=== PATIENT | male | born 1960 | race Caucasian/White ===

== ENCOUNTER 2022-05-05 13:42 | Emergency (ER) | payer MEDICARE ==
[~2022-05-05 13:42] MED LIST: ASPIRIN81 MG PO; FEOSOL325 MG PO; IBUPROFEN800 MG PO; LIPITOR20 MG PO; LOSARTAN POTASS25 MG PO; NEURONTIN300 MG PO; ZYRTEC10 M3 PO
[2022-05-05 15:30] LABS: BASOPHIL 0.3 % (0-2); EOSINOPHIL 0.9 % (0-5); HCT 41.8 % (42.0-52.0); HGB 14.2 g/dl (13.2-18.0); LYMPHOCYTE 11.3 % (15-48); MCH 30.1 pg (25.0-31.0); MCV 88.7 fL (78.0-100.0); MPV 10.1 fL (6.0-9.5); NEUTROPHIL 85.1 % (41-80); NRBC 0; PLT 231 K/uL (150-400); RBC 4.71 M/uL (4.70-6.00); RDW 13.4 % (11.5-14.0); WBC 12.4 K/uL (4.0-10.5)
[2022-05-05 15:42] LABS: BUN/CREAT RATIO (CALC) 16.7 RATIO; CREATININE 0.9 mg/dL (0.67-1.17); POTASSIUM 3.8 mmol/L (3.5-5.1)
[2022-05-05] MEDS ORDERED: PREDNISONE 20MG20 MG PO (15:58)
== END 2022-05-05 16:20 | disposition home or self-care (01) ==
LOC: FER 13:42
PROVIDERS: Nurse Practitioner Family
DX: T78.3XXA Angioneurotic edema, initial encounter (principal); T38.0X5A Adverse effect of glucocorticoids and synthetic analogues, initial encounter; I10 Essential (primary) hypertension; Z79.899 Other long term (current) drug therapy
CPT/HCPCS: 36415; 80048; 85025; J1200; J2930; J7030

== ENCOUNTER 2022-05-11 08:20 | Emergency (ER) | payer MEDICARE ==
[~2022-05-11 08:20] MED LIST changes: +PREDNISONE 20MG20 MG PO
[2022-05-11 09:35] LABS: BASOPHIL 0.3 % (0-2); EOSINOPHIL 0.4 % (0-5); HCT 48.7 % (42.0-52.0); HGB 16.3 g/dl (13.2-18.0); LYMPHOCYTE 16.4 % (15-48); MCH 29.7 pg (25.0-31.0); MCHC 33.5 g/dL (32.0-36.0); MCV 88.9 fL (78.0-100.0); MONOCYTE 5.8 % (0-12); NEUTROPHIL 75.5 % (41-80); NRBC 0; PLT 297 K/uL (150-400); RBC 5.48 M/uL (4.70-6.00); RDW 13.8 % (11.5-14.0); WBC 22.4 K/uL (4.0-10.5)
[2022-05-11 09:53] LABS: ALBUMIN 3.8 g/dL (3.4-5.0); BILIRUBIN - TOTAL 0.9 mg/dL (0.2-1.0); BUN/CREAT RATIO (CALC) 26.3 RATIO; CREATININE 0.95 mg/dL (0.67-1.17); POTASSIUM 4.4 mmol/L (3.5-5.1); TOTAL PROTEIN 7.8 g/dL (6.4-8.2)
== END 2022-05-11 11:50 | disposition home or self-care (01) ==
LOC: FER 08:20
PROVIDERS: Emergency Medicine
DX: T78.40XA Allergy, unspecified, initial encounter (principal)
CPT/HCPCS: 36415; 80053; 85025; J1200; J2930

== ENCOUNTER 2022-05-13 08:16 | Emergency (ER) | payer MEDICARE ==
[2022-05-13 08:48] LABS: BASOPHIL 0.5 % (0-2); EOSINOPHIL 0.9 % (0-5); HCT 45.5 % (42.0-52.0); HGB 15.2 g/dl (13.2-18.0); LYMPHOCYTE 21.5 % (15-48); MCH 30.3 pg (25.0-31.0); MCHC 33.4 g/dL (32.0-36.0); MCV 90.6 fL (78.0-100.0); MONOCYTE 6.6 % (0-12); MPV 9.2 fL (6.0-9.5); NEUTROPHIL 68.1 % (41-80); NRBC 0; PLT 265 K/uL (150-400); RBC 5.02 M/uL (4.70-6.00); RDW 14.1 % (11.5-14.0); WBC 15.2 K/uL (4.0-10.5)
[2022-05-13 08:59] LABS: BUN/CREAT RATIO (CALC) 23.1 RATIO; CREATININE 0.91 mg/dL (0.67-1.17)
[2022-05-13] MEDS ORDERED: PREDNISONE 20MG20 MG PO (10:34)
== END 2022-05-13 10:50 | disposition home or self-care (01) ==
LOC: FER 08:16
PROVIDERS: Emergency Medicine
DX: T78.3XXA Angioneurotic edema, initial encounter (principal); Z91.030 Bee allergy status; Z91.09 Other allergy status, other than to drugs and biological substances
CPT/HCPCS: 36415; 80048; 85025; J1200; J2930